=== PATIENT | male | born 1990 | race African-American/Black ===

== ENCOUNTER 2020-10-29 22:20 | Emergency (ER) | payer OTHER ==
[~2020-10-29] VITALS: Ht 190.5 cm; Wt 127.0 kg
[~2020-10-29 22:20] MED LIST: AZITHROMYCIN 2250 MG PO; FLONASE 0.05%50 MCG NASAL; IBUPROFEN 600600 M1 PO; TESSALON PERLE100 MG PO; TESSALON200 MG PO; ZOFRAN4 MG PO
[2020-10-29] MEDS ORDERED: SUPER THERAVIT1 EACH PO (22:53)
[2020-10-30 01:10] VITALS: BP 151/87
== END 2020-10-30 01:00 | disposition home or self-care (01) ==
LOC: ER 22:20
DX: M54.9 Dorsalgia, unspecified (principal); I10 Essential (primary) hypertension; Z20.822 Contact with and (suspected) exposure to COVID-19; Z79.899 Other long term (current) drug therapy; Z88.1 Allergy status to other antibiotic agents